=== PATIENT | female | born 1970 | race African-American/Black ===

== ENCOUNTER 2022-03-07 23:26 | Emergency (ER) | payer MEDICAID ==
[~2022-03-07] VITALS: Ht 162.6 cm; Wt 59.0 kg
[2022-03-08 00:17] VITALS: BP 107/79
[2022-03-08] MEDS: KETOROLAC 15MG/ML VIAL IM ONE (00:17)
[2022-03-08] MEDS ORDERED: IBUP-2029 MT (00:23)
== END 2022-03-08 01:20 | disposition home or self-care (01) ==
LOC: ER 23:44
DX: G89.29 Other chronic pain (principal); M79.672 Pain in left foot
CPT/HCPCS: 96372; 99283; J1885